=== PATIENT | male | born 1940 ===

== ENCOUNTER 2017-04-14 05:08 | Outpatient (CLI) | payer MEDICARE, OTHER | END 2017-04-14 23:59 | disposition home or self-care (01) | LOC: DIABETIC 05:08 | PROVIDERS: ATTEND Family Medicine | DX: E11.65 Type 2 diabetes mellitus with hyperglycemia (principal) | CPT/HCPCS: G0108 ==

== ENCOUNTER 2017-08-11 03:35 | Outpatient (CLI) | payer MEDICARE, OTHER | END 2017-08-11 23:59 | disposition home or self-care (01) | LOC: DIABETIC 03:35 | PROVIDERS: ATTEND Family Medicine | DX: E11.9 Type 2 diabetes mellitus without complications (principal) | CPT/HCPCS: G0108 ==

== ENCOUNTER 2017-11-13 02:56 | Outpatient (CLI) | payer MEDICARE, OTHER | END 2017-11-13 23:59 | disposition home or self-care (01) | LOC: DIABETIC 02:56 | PROVIDERS: ATTEND Family Medicine | DX: E11.9 Type 2 diabetes mellitus without complications (principal) | CPT/HCPCS: G0108 ==

== ENCOUNTER 2018-02-18 03:19 | Outpatient (CLI) | payer MEDICARE, OTHER | END 2018-02-18 23:59 | disposition home or self-care (01) | LOC: DIABETIC 03:19 | PROVIDERS: ATTEND Family Medicine | DX: E11.65 Type 2 diabetes mellitus with hyperglycemia (principal); Z79.84 Long term (current) use of oral hypoglycemic drugs | CPT/HCPCS: G0108 ==

== ENCOUNTER 2018-06-11 03:09 | Outpatient (CLI) | payer MEDICARE, OTHER | END 2018-06-11 23:59 | disposition home or self-care (01) | LOC: DIABETIC 03:09 | PROVIDERS: ATTEND Family Medicine | DX: E11.9 Type 2 diabetes mellitus without complications (principal); Z79.84 Long term (current) use of oral hypoglycemic drugs | CPT/HCPCS: G0108 ==

== ENCOUNTER 2018-12-14 04:31 | Outpatient (CLI) | payer MEDICARE, OTHER | END 2018-12-14 23:59 | disposition home or self-care (01) | LOC: DIABETIC 04:31 | PROVIDERS: ATTEND Family Medicine | DX: E11.9 Type 2 diabetes mellitus without complications (principal); Z79.84 Long term (current) use of oral hypoglycemic drugs | CPT/HCPCS: G0108 ==

== ENCOUNTER 2019-03-11 01:24 | Outpatient (CLI) | payer MEDICARE, OTHER | END 2019-03-11 23:59 | disposition home or self-care (01) | LOC: DIABETIC 01:24 | PROVIDERS: ATTEND Family Medicine | DX: E11.9 Type 2 diabetes mellitus without complications (principal); Z79.84 Long term (current) use of oral hypoglycemic drugs | CPT/HCPCS: G0108 ==